=== PATIENT | male | born 1945 | race Caucasian/White ===

== ENCOUNTER 2020-03-23 21:51 | Inpatient (IN) ==
[2020-03-23] MEDS ORDERED: NITROGLYCERIN 2% OINTMENT 30GM TUBE EXT STA (22:03)
[2020-03-23] MEDS ORDERED: ASPIRIN CHEW 324 MG PO STA (22:03)
--- NOTE | 2020-03-23 22:09 | Emergency Department Note ---
Impression & Plan Acute MS, Precordial chest pain, Elevated troponin, SOB (shortness of breath) ED Provider Note NAME: NETTE DE LA O AGE: 74 SEX: M : 1945 ARRIVES VIA: Walk-In INFORMANT: [Patient][family] ED PROVIDER(S): [Sam Mendez MD] CHIEF COMPLAINT: Chest pain HISTORY OF PRESENT ILLNESS: The patient is a 74-year-old male presents to the ED with complaints of chest pr essure/tightness. The patient states that his symptoms started about 8 hours ago when he was walking behind a lawnmower. He began to feel short of breath and developed chest tightness. He had no nausea, no sweating. The pain did not radiate. The pain was a 6/10. The patient rested but he still is having discomfort at a 4/10. He spoke to his family member who is a nurse practitioner and he was told to report to the ED. The patient has no known coronary disease. He had a stress test many many years ago and did well on it. He has not had cough or cold or congestion. He has no known coronavirus exposures. REVIEW OF SYSTEMS: See HPI for pertinent positives and negatives. A total of ten systems were reviewed and were otherwise negative. PMHx/PSHx: See Below SOCIAL HISTORY: See Below. PHYSICAL EXAM: GENERAL: Patient is in no acute distress. HEENT: No acute trauma, normocephalic atraumatic, mucous membranes moist, no nasal congestion, no scleral icterus. NECK: No stridor, no adenopathy, no meningismus, trachea is midline. LUNGS: Clear to auscultation bilaterally, no wheeze, no rhonchi, breath sounds equal. Chest: Nontender chest wall. HEART: Subtle systolic murmur, there appears to be a regular rhythm with an occasional extra beat. Normal rate. ABDOMEN: Soft, nontender, bowel sounds positive, no hernias, no peritonitis. EXTREMITIES: No cyanosis or edema, full range of motion of all the joints without pain or difficulty, no signs for acute trauma. NEUROLOGIC: Oriented x 3, no acute motor or sensory deficits, no focal weakness. SKIN: No rash, no jaundice, no diaphoresis. DIFFERENTIAL DIAGNOSIS: Cardiac ischemia, aortic dissection, pulmonary embolism, pneumothorax, pneumonia, pericarditis, myocarditis, esophageal rupture, GERD, cholecystitis, pancreatitis, musculoskeletal, as well as other pathologies. EMERGENCY DEPARTMENT COURSE/PROCEDURES: ECG: Indication was chest pain. The ECG shows a sinus rhythm with some frequent PVCs. The rate is 93. There is some ST depression in the lateral leads. No ST elevation. The QTc is 455. Compared to an ECG from 22 September 2006, the PVCs are new, the ST depressions are new. Repeat ECG : Performed after the nitroglycerin paste shows a sinus rhythm with some PVCs. The rate was 83. The QTc was 465. The lateral ST depressions had nearly resolved. Continuous Cardiac Monitoring: An order was placed for continuous cardiac monitoring. The monitor shows a rate of 90 with sinus rhythm with PVCs. Critical Care Note: I have personally spent greater than 41 minutes of critical care time in the direct management of this patient. This includes bedside care, interpretation of diagnostic studies, and testing, discussion with consultants, patient, and family members, and other required patient management activities. This 41 minutes is in excess of all separately billable procedures. MEDICAL DECISION MAKING: There is no leukocytosis or concerning anemia. There is a normal platelet count. No coagulopathy. No significant electrolyte abnormality or kidney failure. AST mildly elevated, the bilirubin was normal. No evidence for panc reatitis. Chest film did not show mediastinal widening, pneumonia or pneumothorax. ECG showed a sinus rhythm with PVCs. There was some ST depression laterally. No ST elevation. Cardiac troponin testing returned elevated at 22, this elevation is consistent with MS. A second EKG was done during the patient's stay, the second EKG did show improvement in the ST depression. The patient was aggressively managed given his presentation. He was given nitroglycerin paste, he received IV saline 500 cc. He was given oral aspirin. He was given a dose of IV Lopressor, 5 mg. After the above medication regimen, the patient has had improvement in his symptoms. He is much more comfortable. The patient is in need of a hospital stay. I spoke to the case folder. Hospitalization is warranted. The on-call hospitalist has been consulted. In short, I suspect that the patient had an MS earlier today. He does not meet criteria for a heart alert. He is feeling markedly better with medical manag ement. His ECG is improving. Past Med/Surg History Medical History Diabetes mellitus Hypertension Social History Smoking Status: Former smoker Feels Safe at Home: Yes Allergies Allergies Allergy/AdvReac Type Severity Reaction Status Date / Time No Known Allergies Allergy Mild Verified 03/23/20 22:58 Home Meds Home Medications Medication Instructions Recorded Confirmed aspirin 81 mg PO DAILY 03/23/20 03/23/20 ergocalciferol (vitamin D2) 50,000 unit PO WK 03/23/20 03/23/20 lisinopril 20 mg PO DAILY 03/23/20 03/23/20 metformin 500 mg PO BID 03/23/20 03/23/20 omeprazole 20 mg PO DAILY 03/23/20 03/23/20 simvastatin 20 mg PO HS 03/23/20 03/23/20 Results & Data (ED) Vital Signs Vital Signs - 24 hr 03/23/20 21:51 03/23/20 22:16 03/23/20 22:18 Temperature 36.8 C Temperature Source Oral Pulse Rate 94 H Pulse Rate from SpO2 Sensor Respiratory Rate 20 Respiratory Effort / Characteristics Non-Labored Spontaneous Respiratory Depth Normal Blood Pressure 160/89 H Blood Pressure Mean 112 Pulse Oximetry 95 95 95 Oxygen Delivery Method Room Air Room Air Room Air Sepsis Recent Fever Within 48 Hours No Sepsis New/Unexplained Change in Mental Status No Sepsis Action Taken by Nursing No Action Required 03/23/20 22:30 03/23/20 22:38 03/23/20 23:02 Temperature Temperature Source Pulse Rate 81 90 Pulse Rate from SpO2 Sensor 82 Respiratory Rate 19 Respiratory Effort / Characteristics Non-Labored Respiratory Depth Blood Pressure 127/73 155/82 H Blood Pressure Mean 99 Pulse Oximetry 97 Oxygen Delivery Method Sepsis Recent Fever Within 48 Hours Sepsis New/Unexplained Change in Mental Status Sepsis Action Taken by Half-Way Medications Current Medication List: was personally reviewed by me Laboratory Data Attestation: I reviewed the patient's lab results. Result diagrams: 03/23/20 22:09 03/23/20 22:09 Lab Results 03/23/20 03/23/20 03/23/20 Range/Units 22:09 22:09 22:09 WBC 9.49 (4.8-10.8) K/uL RBC 4.24 L (4.7-6.1) M/uL Hgb 13.8 L (14.0-18.0) g/dL Hct 40.4 L (42-52) % MCV 95.3 (80-100) fL MCH 32.5 (25-34) pg MCHC 34.2 (32-36) g/dL RDW Std Deviation 46.9 H (36.4-46.3) fL RDW Coeff of [place] 13.6 (11.5-14.5) % Plt Count 234 (130-400) K/uL MPV 10.6 H (7.4-10.4) fL Immature Gran % (Auto) 0.2 % Neut % (Auto) 75.8 % Lymph % (Auto) 15.0 % [place] % (Auto) 8.5 % Eos % (Auto) 0.3 % Baso % (Auto) 0.2 % Neut # (Auto) 7.19 H (1.4-6.5) K/uL Lymph # (Auto) 1.42 (1.2-3.4) K/uL [place] # (Auto) 0.81 H (0.11-0.59) K/uL Eos # (Auto) 0.03 (0-0.5) K/uL Baso # (Auto) 0.02 (0-0.2) K/uL Immature Gran # (Auto) 0.02 (0.00-0.02) K/uL PT 11.4 (9.0-12.0) Seconds INR 1.1 (0.9-1.1) APTT 26.5 (21.0-31.0) Seconds PTT Ratio 0.9 Sodium 140 (136-145) mmol/L Potassium 3.8 (3.5-5.1) mmol/L Chloride 107 (98-107) mmol/L Carbon Dioxide 24 (21-32) mmol/L Anion Gap 9.0 (3-11) BUN 22 H (7-18) mg/dl Creatinine 0.99 (0.6-1.4) mg/dl Est Cr Clr Drug Dosing 81.9 ml/min Est GFR ( Amer) 87.8 Est GFR (Non-Af Amer) 75.8 BUN/Creatinine Ratio 21.9 H (10-20) Glucose 165 H (70-99) mg/dl Calcium 9.5 (8.5-10.1) mg/dl Magnesium 1.8 (1.8-2.4) mg/dl Total Bilirubin 0.5 (0.2-1) mg/dl AST 97 H (15-37) U/L ALT 52 (12-78) U/L Alkaline Phosphatase 87 (45-117) U/L Troponin I 22.700 H* (0-0.045) ng/ml Total Protein 7.3 (6.4-8.2) gm/dl Albumin 3.9 (3.4-5.0) gm/dl Globulin 3.4 (2.5-4.0) gm/dl Albumin/Globulin Ratio 1.1 (0.9-2) Lipase 79 (73-393) U/L Administered Medications Discontinued Medications Aspirin (Aspirin Chew 324 Mg) 324 mg PO NOW STA Stop: 03/23/20 22:04 Last Admin: 03/23/20 22:19 Dose: 324 mg Documented by: [id number] Sodium Chloride (Nss) 500 mls @ 999 mls/hr IV .Q31M DIANA Stop: 03/23/20 22:45 Last Infusion: 03/23/20 22:50 Dose: 0 mls/hr Documented by: [id number] Admin: 03/23/20 22:19 Dose: 999 mls/hr Documented by: [id number] Metoprolol Tartrate (Metoprolol Tartrate 1 Mg/Ml Vial) 5 mg IV NOW STA Stop: 03/23/20 22:55 Last Admin: 03/23/20 23:02 Dose: 5 mg Documented by: [id number] Nitroglycerin (Nitroglycerin 2% Ointment 30gm Tube) 2 inch EXT NOW STA Stop: 03/23/20 22:04 Last Admin: 03/23/20 22:19 Dose: 2 inch Documented by: [id number] Imaging Data Attestation: I personally reviewed and interpreted this imaging study as follows: My Impression: Chest x-ray: There is no pneumonia, pneumothorax or mediastinal widening. The lungs appear clear. There is no free air. Blood Pressure Blood Pressure Findings: Elevated blood pressure Blood Pressure Disposition: Referred to patients primary care provider Discharge Plan Visit Data Chief Complaint: Shortness of Breath/Dyspnea Stated Complaint: SOB,CHEST PAIN ED Provider: Sam Mendez Discharge Problem: Acute MS, Precordial chest pain, Elevated troponin, SOB (shortness of breath) Patient Disposition: Admitted As Inpatient Condition: Good Forms Stand Alone Forms: My [facility] [place] [employer] Prescriptions Prescriptions: No Action metformin 500 mg tablet 500 mg PO BID RF: 0 lisinopril 20 mg tablet 20 mg PO DAILY RF: 0 simvastatin 20 mg tablet 20 mg PO HS RF: 0 omeprazole 20 mg capsule,delayed release(DR/EC) 20 mg PO DAILY RF: 0 aspirin 81 mg tablet,chewable 81 mg PO DAILY RF: 0 ergocalciferol (vitamin D2) 1,250 mcg (50,000 unit) capsule 50,000 unit PO WK RF: 0 Referrals Referrals: Vladimir Acosta MD [Primary Care Provider] - Discharge Problem: Acute MS Qualifiers: Myocardial infarction type: non-ST elevation myocardial infarction Qualified Code(s): I21.4 - Non-ST elevation (NSTEMI) myocardial infarction
[2020-03-23] MEDS ORDERED: SODIUM CHLORIDE 0.9% 500 ML IV SCH (22:15)
[2020-03-23 22:20] LABS: Basophils # (auto) 0.02 K/uL (0-0.2); Basophils % (auto) 0.2 %; Eosinophils # (auto) 0.03 K/uL (0-0.5); Eosinophils % (auto) 0.3 %; Hematocrit (blood only) 40.4 % (42-52); Hemoglobin 13.8 g/dL (14.0-18.0); Immature Granulocytes # (auto) 0.02 K/uL (0.00-0.02); Immature Granulocytes % (auto) 0.2 %; Lymphocytes # (auto) 1.42 K/uL (1.2-3.4); Mean Corpuscular Hemoglobin 32.5 pg (25-34); Mean Corpuscular Hgb Conc 34.2 g/dL (32-36); Mean Corpuscular Volume 95.3 fL (80-100); Mean Platelet Volume 10.6 fL (7.4-10.4); Monocytes # (auto) 0.81 K/uL (0.11-0.59); Monocytes % (auto) 8.5 %; Neutrophils # (auto) 7.19 K/uL (1.4-6.5); Neutrophils % (auto) 75.8 %; Platelet Count 234 K/uL (130-400); RDW Coefficient of Variation 13.6 % (11.5-14.5); RDW Standard Deviation 46.9 fL (36.4-46.3); Red Blood Count 4.24 M/uL (4.7-6.1); White Blood Count 9.49 K/uL (4.8-10.8)
[2020-03-23 22:30] LABS: INR 1.1 (0.9-1.1); Partial Thromboplastin Ratio 0.9; Partial Thromboplastin Time 26.5 Seconds (21.0-31.0); Prothrombin Time 11.4 Seconds (9.0-12.0)
[2020-03-23 22:37] LABS: Albumin Level 3.9 gm/dl (3.4-5.0); BUN Creatinine Ratio 21.9 (10-20); Calcium 9.5 mg/dl (8.5-10.1); Creatinine Clr Calc Pharmacy 81.9 ml/min; Est GFR (African American) 87.8; Est GFR (Non-African American) 75.8; Magnesium 1.8 mg/dl (1.8-2.4); Potassium 3.8 mmol/L (3.5-5.1)
[2020-03-23 22:52] LABS: Albumin Globulin Ratio 1.1 (0.9-2); Bilirubin,Total 0.5 mg/dl (0.2-1); Globulin 3.4 gm/dl (2.5-4.0); Total Protein 7.3 gm/dl (6.4-8.2); Troponin I 22.7 ng/ml (0-0.045)
[2020-03-23] MEDS ORDERED: METOPROLOL TARTRATE 1 MG/ML VIAL IV STA (22:54)
[2020-03-23] MEDS ORDERED: POTASSIUM CHLORIDE 20 MEQ TABCR PO STA (23:11)
[2020-03-23] MEDS ORDERED: MAGNESIUM SULFATE / D5W 1 GM/100 ML BAG IV STA (23:12)
[2020-03-23] MEDS ORDERED: Heparin IV Standard *NO* Bolus STA (23:40)
--- NOTE | 2020-03-23 23:43 | History & Physical Report ---
Date of Service March 23, 2020 Assessment & Plan (1) NSTEMI (non-ST elevated myocardial infarction): hypertension, slight elevated hyperlipidemia, on statin Rx DM 2 on oral meds, well-controlled as of recent outpatient hemoglobin A1c 5.07 March 2020 prostate cancer status post surgery ANTONI status post surgery on BIPAP chronic anemia, hemoglobin at baseline past tobacco abuse PCU Continue aspirin and statin Rx Initiate beta-rolanda therapy Continue home EVE inhibitor IV heparin Trend troponin TTE, Cardiology consult RE ACS (ER provider awaiting callback from Dr. Farrar.) Update lipid profile Basal insulin, ISS BG goal [id number], carb count coverage DVT prophylaxis. IV heparin Full code Patient's requesting updates for providers. Ms. Bridgett Chairez, contact #[phone]. Text document was generated using [employer] voice recognition software. It may contain grammatical or spelling errors. Kindly contact undersigned for clarification of any documentation item in question. History of Present Illness Chief Complaint: Chest tightness, shortness of breath Primary Care Provider: Vladimir Acosta MD History obtained from patient, family, and records. Medical history significant for hypertension, hyperlipidemia, DM 2 on oral meds, prostate cancer status post surgery, ANTONI status post surgery on BIPAP, chronic anemia (baseline hemoglobin of 13 ), past tobacco abuse. Last confinement 2009 for E. coli UTI. Patient was mowing his lawn this afternoon when he experienced chest pressure/tightness associated with shortness of breath. No cough symptoms. No radiation. No prior episodes in the past. Yardwork a little more strenuous than usual since longterm as per . At the ER, chest discomfort improved with Nitropaste administration. MEDICAL HISTORY: As above. SURGERIES: UP3, skin cancer surgery, prostatectomy, carpal tunnel surgery, FAMILY HISTORY: gastric cancer, DM. ANTONI PERSONAL AND SOCIAL HISTORY: Past tobacco use. No chronic intake of alcoholic beverages. 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 Allergies Allergy/AdvReac Type Severity Reaction Status Date / Time No Known Allergies Allergy Mild Verified 03/23/20 22:58 Home Medications Home Medications Medication Instructions Recorded Confirmed Type aspirin 81 mg PO DAILY 03/23/20 03/23/20 History ergocalciferol (vitamin D2) 50,000 unit PO WK 03/23/20 03/23/20 History lisinopril 20 mg PO DAILY 03/23/20 03/23/20 History metformin 500 mg PO BID 03/23/20 03/23/20 History omeprazole 20 mg PO DAILY 03/23/20 03/23/20 History simvastatin 20 mg PO HS 03/23/20 03/23/20 History Past Med/Surg History Medical History Diabetes mellitus Hypertension Social History Smoking Status: Former smoker Smoking End Date: 1965; Second Hand Exposure: No; Do You Dip or Chew Tobacco: No; Tobacco Cessation Education Requested by Patient: No Hx Alcohol Use: Yes Alcohol type: wine Hx Substance Use: No Preferred Language: [place] Communication Ability: Effective 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 Beliefs That Will Affect Care: None Current Living Situation: Spouse Other Information That Helps Us Care for You: No Feels Safe at Home: Yes Safety Concerns: Feels Safe At This Time Assistive Devices: CPAP, Glasses and Hearing Aid - Bilateral Review of Systems Review of Systems: As per HPI, all 10 systems reviewed, all other ROS negative Physical Exam Physical Exam: GENERAL: Comfortable, pleasant, obese, slightly anxious, no respiratory distress SKIN: Normal color, warm HEENT: Bespectacled, [place] palpebral conjunctivae, no ptosis, dry buccal mucosa NECK : Supple, short neck, no tenderness CHEST : CTA, no tenderness HEART : Diminished S1-S2 , no obvious murmurs ABDOMEN: Some distention, nontender EXTREMITIES : No LE swelling/tenderness, no other conspicuous deformities noted NEUROLOGIC : Coherent, no facial asymmetry, no other gross focality Results & Data Results & Data ([facility]) Vital Signs (Past 12 Hours) Vital Signs Temp Pulse Resp BP Pulse Ox 03/23/20 23:02 90 155/82 H 03/23/20 22:30 81 19 127/73 97 03/23/20 22:18 95 03/23/20 22:16 95 03/23/20 21:51 36.8 C 94 H 20 160/89 H 95 Laboratory Results Laboratory Results WBC 9.49 K/uL (4.8-10.8) 03/23/20 22:09 RBC 4.24 M/uL (4.7-6.1) L 03/23/20 22:09 Hgb 13.8 g/dL (14.0-18.0) L 03/23/20 22:09 Hct 40.4 % (42-52) L 03/23/20 22:09 MCV 95.3 fL (80-100) 03/23/20 22:09 MCH 32.5 pg (25-34) 03/23/20 22:09 MCHC 34.2 g/dL (32-36) 03/23/20 22:09 RDW Std Deviation 46.9 fL (36.4-46.3) H 03/23/20 22:09 RDW Coeff of [place] 13.6 % (11.5-14.5) 03/23/20 22:09 Plt Count 234 K/uL (130-400) 03/23/20 22:09 MPV 10.6 fL (7.4-10.4) H 03/23/20 22:09 Immature Gran % (Auto) 0.2 % 03/23/20 22:09 Neut % (Auto) 75.8 % 03/23/20 22:09 Lymph % (Auto) 15.0 % 03/23/20 22:09 [place] % (Auto) 8.5 % 03/23/20 22:09 Eos % (Auto) 0.3 % 03/23/20 22:09 Baso % (Auto) 0.2 % 03/23/20 22:09 Neut # (Auto) 7.19 K/uL (1.4-6.5) H 03/23/20 22:09 Lymph # (Auto) 1.42 K/uL (1.2-3.4) 03/23/20 22:09 [place] # (Auto) 0.81 K/uL (0.11-0.59) H 03/23/20 22:09 Eos # (Auto) 0.03 K/uL (0-0.5) 03/23/20 22:09 Baso # (Auto) 0.02 K/uL (0-0.2) 03/23/20 22:09 Immature Gran # (Auto) 0.02 K/uL (0.00-0.02) 03/23/20 22:09 PT 11.4 Seconds (9.0-12.0) 03/23/20 22:09 INR 1.1 (0.9-1.1) 03/23/20 22:09 APTT 26.5 Seconds (21.0-31.0) 03/23/20 22:09 PTT Ratio 0.9 03/23/20 22:09 Sodium 140 mmol/L (136-145) 03/23/20 22:09 Potassium 3.8 mmol/L (3.5-5.1) 03/23/20 22:09 Chloride 107 mmol/L (98-107) 03/23/20 22:09 Carbon Dioxide 24 mmol/L (21-32) 03/23/20 22:09 Anion Gap 9.0 (3-11) 03/23/20 22:09 BUN 22 mg/dl (7-18) H 03/23/20 22:09 Creatinine 0.99 mg/dl (0.6-1.4) 03/23/20 22:09 Est Cr Clr Drug Dosing 81.9 ml/min 03/23/20 22:09 Est GFR ( Amer) 87.8 03/23/20 22:09 Est GFR (Non-Af Amer) 75.8 03/23/20 22:09 BUN/Creatinine Ratio 21.9 (10-20) H 03/23/20 22:09 Glucose 165 mg/dl (70-99) H 03/23/20 22:09 Calcium 9.5 mg/dl (8.5-10.1) 03/23/20 22:09 Magnesium 1.8 mg/dl (1.8-2.4) 03/23/20 22:09 Total Bilirubin 0.5 mg/dl (0.2-1) 03/23/20 22:09 AST 97 U/L (15-37) H 03/23/20 22:09 ALT 52 U/L (12-78) 03/23/20 22:09 Alkaline Phosphatase 87 U/L (45-117) 03/23/20 22:09 Troponin I 22.700 ng/ml (0-0.045) H* 03/23/20 22:09 Total Protein 7.3 gm/dl (6.4-8.2) 03/23/20 22:09 Albumin 3.9 gm/dl (3.4-5.0) 03/23/20 22:09 Globulin 3.4 gm/dl (2.5-4.0) 03/23/20 22:09 Albumin/Globulin Ratio 1.1 (0.9-2) 03/23/20 22:09 Lipase 79 U/L (73-393) 03/23/20 22:09 Diagnostic Findings Chest x-ray interpretation cardiomegaly, prominent aortic knob, atelectasis EKG as per my interpretation : Rate 95, NSR, normal axis, ST depression anterolateral leads, PVCs
[2020-03-23] MEDS ORDERED: HEPARIN SODIUM/DEXTROSE 25,000 UNITS/500 ML BAG IV SCH (23:45)
[2020-03-24] MEDS ORDERED: HEPARIN 25000 UNIT/500 ML D5W IV ONE (00:21)
[2020-03-24] MEDS ORDERED: DEXTROSE 50% 50 ML SYRINGE IV PRN (00:43)
[2020-03-24] MEDS ORDERED: MoRPHine SULFATE 2 MG/ML CARP IV PRN (00:43)
[2020-03-24] MEDS ORDERED: TRAMADOL HCL 50 MG TABLET PO PRN (00:43)
[2020-03-24] MEDS ORDERED: GLUCOSE 40% GEL 15 GM TUBE PO PRN (00:43)
[2020-03-24] MEDS ORDERED: ACETAMINOPHEN 325 MG TAB PO PRN (00:43)
[2020-03-24] MEDS ORDERED: NITROGLYCERIN SL 0.4 MG/TAB TAB SL PRN (00:43)
[2020-03-24] MEDS ORDERED: GLUCAGON FOR INJ 1 MG VIAL SQ PRN (00:43)
[2020-03-24] MEDS ORDERED: PROMETHAZINE HCL 12.5 MG in SODIUM CHLORIDE 0.9% 50 ML IV PRN (00:43)
[2020-03-24] MEDS ORDERED: GLUCOSE 10 TABS/TUBE PO PRN (00:43)
[2020-03-24] MEDS ORDERED: LORazepam 0.25 MG/0.5 ML VIAL IV PRN (00:43)
[2020-03-24] MEDS ORDERED: CARBOHYDRATES FOR HYPOGLYCEMIA PO PRN (00:43)
[2020-03-24] MEDS ORDERED: LACTATED RINGER'S 1,000 ML IV ONE (00:43)
[2020-03-24] MEDS: INSULIN ASPART 100 UNITS/ML 3 ML PEN SC SCH ×3 (01:11→12:21)
[2020-03-24 06:58] LABS: Basophils # (auto) 0.04 K/uL (0-0.2); Basophils % (auto) 0.5 %; Eosinophils # (auto) 0.08 K/uL (0-0.5); Eosinophils % (auto) 1.1 %; Hematocrit (blood only) 36.7 % (42-52); Hemoglobin 12.8 g/dL (14.0-18.0); Immature Granulocytes # (auto) 0.01 K/uL (0.00-0.02); Immature Granulocytes % (auto) 0.1 %; Lymphocytes # (auto) 1.57 K/uL (1.2-3.4); Lymphocytes % (auto) 20.7 %; Mean Corpuscular Hemoglobin 33.5 pg (25-34); Mean Corpuscular Hgb Conc 34.9 g/dL (32-36); Mean Corpuscular Volume 96.1 fL (80-100); Monocytes # (auto) 0.69 K/uL (0.11-0.59); Monocytes % (auto) 9.1 %; Neutrophils # (auto) 5.18 K/uL (1.4-6.5); Neutrophils % (auto) 68.5 %; Platelet Count 215 K/uL (130-400); RDW Coefficient of Variation 13.7 % (11.5-14.5); RDW Standard Deviation 47.8 fL (36.4-46.3); Red Blood Count 3.82 M/uL (4.7-6.1); White Blood Count 7.57 K/uL (4.8-10.8)
[2020-03-24 07:17] LABS: Partial Thromboplastin Ratio 2.1
[2020-03-24 07:18] LABS: Partial Thromboplastin Time 59.5 Seconds (21.0-31.0)
[2020-03-24 07:31] LABS: BUN Creatinine Ratio 21.7 (10-20); Calcium 9.3 mg/dl (8.5-10.1); Creatinine Clr Calc Pharmacy 113.7 ml/min; Est GFR (African American) 109.3; Est GFR (Non-African American) 94.3
[2020-03-24 07:59] LABS: Troponin I 76.9 ng/ml (0-0.045)
--- NOTE | 2020-03-24 08:33 | XRay Report ---
XR chest 1V portable CLINICAL HISTORY: Chest pain. COMPARISON STUDY: Chest radiograph August 04, 2014. FINDINGS: Lung volumes are normal. Lungs are clear. There is no pneumothorax or pleural effusion. Car diac size is normal. Mediastinal contours are normal. There is no evidence for pulmonary edema. IMPRESSION: No acute cardiopulmonary findings. ACT 112: Negative or not required by law. Electronically signed by: Ruperto Franks M.D. 03/24/2020 8:32 AM
[2020-03-24] MEDS ORDERED: lisinopriL 20 MG TAB PO SCH (09:00)
[2020-03-24] MEDS ORDERED: METOPROLOL SUCC 25MG EXT REL TAB PO SCH (09:00)
[2020-03-24] MEDS ORDERED: PANTOprazole 40 MG TAB PO SCH (09:00)
[2020-03-24] MEDS ORDERED: ASPIRIN 81 MG ECTAB PO SCH (09:00)
[2020-03-24] MEDS ORDERED: INSULIN GLARGINE SOLOSTAR 100 UNITS/ML 3 ML PEN SC SCH (09:00)
--- NOTE | 2020-03-24 09:57 | Cardiology Consultation ---
Date of Consultation March 24, 2020 Assessment & Plan (1) NSTEMI (non-ST elevated myocardial infarction): Patient now with 2 out of 10 chest discomfort. States that similar to his presenting symptoms but not as severe. Given the fact he is now symptomatic along with his EKG changes, significant troponin elevation and findings of inferior wall hypokinesis I believe the most prudent course of action is to proceed directly to the cardiac Sales Team Manager. I discussed these findings and recommendations with the patient and his daughter by phone. I also discussed the risks and benefits of the procedure, they both state that they understand, they are accepting of the risks and wished to proc eed. Further recommendations to follow cardiac cath. He will be continued on his IV heparin and sublingual nitroglycerin will be given now. (2) Diabetes mellitus: (3) Hypertension: History of Present Illness Reason for Consultation: Non-ST segment elevation myocardial infarction. Requesting Physician: Dr. Gr. Attending Physician: Francisco Larry MD History of Present Illness Mr. Chairez is a very pleasant 74-year-old gentleman who presented to [facility] on 03/24/2020 with complaints of shortness of breath and chest discomfort. He states that on the date of presentation he was cutting his grass when he became significantly short of breath and developed chest discomfort. He described the chest discomfort as a pressure sensation across his left precordium. He stopped to rest and shortness of breath improved however, his chest pain persisted. He denied any radiation of the discomfort, diaphoresis, nausea, palpitations, lightheadedness, dizziness or syncope. He denies any previous similar episodes, however, he does note that he became short of breath while cutting grass approximately 2 weeks ago but that episode did not result in a chest discomfort. Upon presentation emergency room, his initial EKG was unremarkable, however, troponin level was elevated and he was started on IV heparin. This chest discomfort resolved with Nitropaste and he was comfortable overnight. I saw the patient on the morning of the at that time he was relating that he was having some slight chest discomfort again ranking it 2 out of 10 on a pain scale. He states his pain upon presentation was 5 out of 10 on a pain scale. Troponin levels continue to elevate overnight to a peak of 77 and serial EKGs showed evolving ST segment depressions in the lateral leads. Stat echocardiogram was performed which revealed inferior/inferior wall hypokinesis. Allergies Allergy/AdvReac Type Severity Reaction Status Date / Time No Known Allergies Allergy Mild Verified 03/23/20 22:58 Home Medications Home Medications Medication Instructions Recorded Confirmed Type aspirin 81 mg PO DAILY 03/23/20 03/23/20 History ergocalciferol (vitamin D2) 50,000 unit PO WK 03/23/20 03/23/20 History lisinopril 20 mg PO DAILY 03/23/20 03/23/20 History metformin 500 mg PO BID 03/23/20 03/23/20 History omeprazole 20 mg PO DAILY 03/23/20 03/23/20 History atorvastatin 80 mg PO QAM #30 tab 03/24/20 Rx Patient History Medical History Diabetes mellitus Hypertension Social History Smoking Status: Former smoker Smoking End Date: 1965; Second Hand Exposure: No; Do You Dip or Chew Tobacco: No; Tobacco Cessation Education Requested by Patient: No Hx Alcohol Use: Yes Alcohol type: wine Hx Substance Use: No Preferred Language: Portuguese Communication Ability: Effective Compliance Paralegal Required: No Beliefs That Will Affect Care: None Current Living Situation: Spouse Other Information That Helps Us Care for You: No Feels Safe at Home: Yes Safety Concerns: Feels Safe At This Time Assistive Devices: CPAP, Glasses and Hearing Aid - Bilateral Review of Systems Review of Systems: All systems reviewed & are unremarkable except as noted in HPI & below Physical Exam Physical Exam: General: Awake, alert and oriented x 3. No acute distress. HEENT: Normocephalic, atraumatic. Pupils equal, round and reactive to light and accommodation. Extraocular muscles are intact. Anicteric sclera. Moist mucous membranes. Neck: No JVD. No bruit. Cardiovascular: Regular. Positive S-4. Normal S-1 and S-2. No S-3. No murmurs or rubs. Pulmonary: Clear to auscultation B/L. No rales, rhonchi or wheezing Abdomen: Bowel sounds x 4, soft. No rebound, guarding or tenderness. No organomegaly. Extremities: No clubbing, cyanosis or edema. +2 pedal pulses bilaterally. Skin: Warm and dry. Results & Data ([place]) Vital Signs (Past 12 Hours) Vital Signs Temp Pulse Pulse Resp BP BP Pulse Ox 03/24/20 08:13 37.1 C 72 18 138/77 94 03/24/20 03:47 36.4 C L 61 18 127/84 94 03/24/20 00:40 36.6 C 60 18 132/72 94 03/24/20 00:15 73 22 122/75 95 03/23/20 23:32 80 23 95 03/23/20 23:31 78 23 126/79 96 03/23/20 23:02 90 155/82 H 03/23/20 22:30 81 19 127/73 97 03/23/20 22:18 95 03/23/20 22:16 95 Laboratory Results Laboratory Results - last 24 hr 03/23/20 03/23/20 03/23/20 22:09 22:09 22:09 WBC 9.49 RBC 4.24 L Hgb 13.8 L Hct 40.4 L MCV 95.3 MCH 32.5 MCHC 34.2 RDW Std Deviation 46.9 H RDW Coeff of Santa 13.6 Plt Count 234 MPV 10.6 H Immature Gran % (Auto) 0.2 Neut % (Auto) 75.8 Lymph % (Auto) 15.0 Wolfe % (Auto) 8.5 Eos % (Auto) 0.3 Baso % (Auto) 0.2 Neut # (Auto) 7.19 H Lymph # (Auto) 1.42 Wolfe # (Auto) 0.81 H Eos # (Auto) 0.03 Baso # (Auto) 0.02 Immature Gran # (Auto) 0.02 PT 11.4 INR 1.1 APTT 26.5 PTT Ratio 0.9 Activ Coag Time Kaolin Sodium 140 Potassium 3.8 Chloride 107 Carbon Dioxide 24 Anion Gap 9.0 BUN 22 H Creatinine 0.99 Est Cr Clr Drug Dosing 81.9 Est GFR ( Amer) 87.8 Est GFR (Non-Af Amer) 75.8 BUN/Creatinine Ratio 21.9 H Glucose 165 H POC Glucose Calcium 9.5 Magnesium 1.8 Total Bilirubin 0.5 AST 97 H ALT 52 Alkaline Phosphatase 87 Troponin I 22.700 H* Total Protein 7.3 Albumin 3.9 Globulin 3.4 Albumin/Globulin Ratio 1.1 Triglycerides Cholesterol LDL Cholesterol, Calc VLDL Cholesterol, Calc HDL Cholesterol Cholesterol/HDL Ratio Lipase 79 03/24/20 03/24/20 03/24/20 00:48 06:30 06:30 WBC 7.57 RBC 3.82 L Hgb 12.8 L Hct 36.7 L MCV 96.1 MCH 33.5 MCHC 34.9 RDW Std Deviation 47.8 H RDW Coeff of Santa 13.7 Plt Count 215 MPV 11.0 H Immature Gran % (Auto) 0.1 Neut % (Auto) 68.5 Lymph % (Auto) 20.7 Wolfe % (Auto) 9.1 Eos % (Auto) 1.1 Baso % (Auto) 0.5 Neut # (Auto) 5.18 Lymph # (Auto) 1.57 Wolfe # (Auto) 0.69 H Eos # (Auto) 0.08 Baso # (Auto) 0.04 Immature Gran # (Auto) 0.01 PT INR APTT PTT Ratio Activ Coag Time Kaolin Sodium 140 Potassium 4.0 Chloride 109 H Carbon Dioxide 25 Anion Gap 6.0 BUN 15 Creatinine 0.70 Est Cr Clr Drug Dosing 113.7 Est GFR ( Amer) 109.3 Est GFR (Non-Af Amer) 94.3 BUN/Creatinine Ratio 21.7 H Glucose 116 H POC Glucose 125 H Calcium 9.3 Magnesium Total Bilirubin AST ALT Alkaline Phosphatase Troponin I 76.900 H* Total Protein Albumin Globulin Albumin/Globulin Ratio Triglycerides 42 Cholesterol 122 LDL Cholesterol, Calc 59 VLDL Cholesterol, Calc 8 HDL Cholesterol 55 Cholesterol/HDL Ratio 2 Lipase 03/24/20 03/24/20 03/24/20 06:30 07:48 10:45 WBC RBC Hgb Hct MCV MCH MCHC RDW Std Deviation RDW Coeff of Santa Plt Count MPV Immature Gran % (Auto) Neut % (Auto) Lymph % (Auto) Wolfe % (Auto) Eos % (Auto) Baso % (Auto) Neut # (Auto) Lymph # (Auto) Wolfe # (Auto) Eos # (Auto) Baso # (Auto) Immature Gran # (Auto) PT INR APTT 59.5 H* PTT Ratio 2.1 Activ Coag Time Kaolin 158 H Sodium Potassium Chloride Carbon Dioxide Anion Gap BUN Creatinine Est Cr Clr Drug Dosing Est GFR ( Amer) Est GFR (Non-Af Amer) BUN/Creatinine Ratio Glucose POC Glucose 124 H Calcium Magnesium Total Bilirubin AST ALT Alkaline Phosphatase Troponin I Total Protein Albumin Globulin Albumin/Globulin Ratio Triglycerides Cholesterol LDL Cholesterol, Calc VLDL Cholesterol, Calc HDL Cholesterol Cholesterol/HDL Ratio Lipase 03/24/20 11:49 WBC RBC Hgb Hct MCV MCH MCHC RDW Std Deviation RDW Coeff of [place] Plt Count MPV Immature Gran % (Auto) Neut % (Auto) Lymph % (Auto) Wolfe % (Auto) Eos % (Auto) Baso % (Auto) Neut # (Auto) Lymph # (Auto) Wolfe # (Auto) Eos # (Auto) Baso # (Auto) Immature Gran # (Auto) PT INR APTT PTT Ratio Activ Coag Time Kaolin Sodium Potassium Chloride Carbon Dioxide Anion Gap BUN Creatinine Est Cr Clr Drug Dosing Est GFR ( Amer) Est GFR (Non-Af Amer) BUN/Creatinine Ratio Glucose POC Glucose 116 H Calcium Magnesium Total Bilirubin AST ALT Alkaline Phosphatase Troponin I Total Protein Albumin Globulin Albumin/Globulin Ratio Triglycerides Cholesterol LDL Cholesterol, Calc VLDL Cholesterol, Calc HDL Cholesterol Cholesterol/HDL Ratio Lipase
[2020-03-24] MEDS ORDERED: NiCARDipine HCL INJ 2.5 MG/ML 10 ML AMP ONE (10:17)
[2020-03-24] MEDS ORDERED: fentaNYL citrate 100 MCG/2 ML VIAL ONE (10:17)
[2020-03-24] MEDS ORDERED: HEPARIN (PORCINE) 1000 UNIT/ML 10 ML (CATH LAB USE ONLY) ONE (10:17)
[2020-03-24] MEDS ORDERED: MIDAZOLAM HCL 1 MG/ML 2ML VIAL ONE (10:18)
[2020-03-24] MEDS ORDERED: NITROGLYCERIN/D5W 100MCG/ML 20ML SYR ONE (10:18)
--- NOTE | 2020-03-24 11:07 | Cardiac Catheterization ---
Cardiac Cath Procedure Full Procedure Date March 24, 2020 Pre-Procedure Diagnosis Pre-Procedure Diagnosis: Non STEMI AUC Score AUC Score: 08 Post-Procedure Diagnosis Post-Procedure Diagnosis: Severe CAD (Multi-vessel) Procedure(s) Performed Procedure(s) Performed: Coronary Angiography Research Pharmacist Shiraz Guerrero MD Estimated Blood Loss Estimated Blood Loss: None (<5 ml) Medication(s) Medication(s): Fentanyl, Heparin, Lidocaine 1%, Nicardipine, Nitroglycerin and Versed Summary of Findings LMT: large. Diffuse mild LAD: large and transapical. Proximal diffuse up to 40-50% before D1.Mid 95%. Distal vessel with diffuse mild disease and early long eccentric 95-99%. D1 and D2 medium mild. LCx: large and codominant. Ostial 99% hazy lesion. Travels in AV groove and provides multiple small to medium OMs which have mild disease. Terminates distally as a large PLB and large PDA. CELY III. RCA: large caliber and codominant. Diffuse mild disease with up to 30% mid stenosis. Bifurcates distally into large PDA and large branching PLB. PLB has ostial 50-70% stenosis. Mild scattered disease in PDA. Hemodynamics Rest Ao:: 110/64 mm Hg, mean 89 m Hg Final Ao: 113/65 mm Hg, mean 84 mm Hg LV: N/A Recommendations Recommendations: CABG (If patient decides he doesn't want surgery or if surgery excessive risk then PCI of LAD feasible and high risk PCI of ostial LCx should be considered at tertiary center.) and Management Recommendatons (CABG or complex high risk PCI at tertiary center (Impella support?). GDMT including ASA, statin, BB, and ACEi/ARB given DM) Specimens Specimens: None Radiation Exposure (mGy) 830 Contrast (mls) 45 Procedural Complication(s) None Disposition ICU I attest to the content of the Intraoperative Record and any orders documented therein. Any exceptions are noted below. ACC Data: Business Applications Specialist Cardiac Status Clinical evaluation leading to the procedure CAD Presenation: Non STEMI Anginal Classification: CCS IV Heart Failure: No Cardiogenic Shock within 24 Hours: No Cardiac Arrest within 24 Hours: No Imaging Studies Past 6 Months: Yes Stress Studies Past 6 Months: No Standard Exercise Test: No Stress Echocardiogram: No Stress Testing w/SPECT MPI: No Cardiac CTA: No STEMI OR Non-STEMI Symptom Onset Date: 03/23/20 Thrombolytics: No Coronary Anatomy Dominant: Co-Dominant Left Main (% Stenosis): Normal (mild luminal irregularities) LAD (% Stenosis): Proximal (mild <50%), Mid (95%) and Distal (99%) D1 (% Stenosis): Normal D2 (% Stenosis): Normal Circumflex (% Stenosis): Ostial (99% ) RCA (% Stenosis): Mid (mid 30-40) R PL1 (% Stenosis): Ostial (50-70) Diagnostic Physicians Name: Shiraz Guerrero MD Status: Urgent Closure Device Percutaneous Entry Location: Radial Closure Device: Radial Band Recommendations: CABG (If patient decides he doesn't want surgery or if surgery excessive risk then PCI of LAD feasible and high risk PCI of ostial LCx should be considered at tertiary center.) and Management Recommendatons (CABG or complex high risk PCI at tertiary center (Impella support?). GDMT including ASA, statin, BB, and ACEi/ARB given DM) Intraprocedure Events Significant Disection: No Perforation: No
[2020-03-24] MEDS ORDERED: NITROGLYCERIN 2% OINTMENT 30GM TUBE EXT SCH (12:00)
--- NOTE | 2020-03-24 12:30 | Hospitalist Progress Note ---
Date of Service March 24, 2020 Assessment & Plan (1) NSTEMI (non-ST elevated myocardial infarction): Present on admission with non radiating pressure like chest pain Troponin on admission 22, that increased to 76 EKG done this morning showed acute changes compare to the EKG on admission IV heparin starting in the ER Case discussed with cardiology and bedside echo done Echo showed mildly reduced LV systolic function with moderate hypokinesis of the inferior/inferior lateral wall. Ejection fraction 45 to 50% heart alert was called for emergent cardiac cath S/P cardiac cath performed by Dr Guerrero showed: LAD: large and transapical. Proximal diffuse up to 40-50% before D1.Mid 95%. Distal vessel with diffuse mild disease and early long eccentric 95-99%. D1 and D2 medium mild. LCx: large and codominant. Ostial 99% hazy lesion. Travels in AV groove and provides multiple small to medium OMs which have mild disease. Terminates distally as a large PLB and large PDA. CELY III. RCA: large caliber and codominant. Diffuse mild disease with up to 30% mid stenosis. Bifurcates distally into large PDA and large branching PLB. PLB has ostial 50-70% stenos Recommended CABG at a tertiary facility cardiology Dr. Farrar discussed case with cardiology in [place] Dr. Sarah who accepted the patient Simvastatin changed to atorvastatin 80mg daily Continue IV heparin drip, aspirin and metoprolol Nitro topical added Pt will be transferred to [facility] continue hall monitor Dyslipidemia Cholesterol 122, HDL 55, LDL 59 Simvastatin discontinued and started on Lipitor 80mg DM type 2 Most recent Hba1c 5.9 on Sempteber 2019 Continue to hold metformin due to contrast On lantus and novolod sliding scale while HTN BP stable Continue Lisinopril DVT prophylaxis on IV heparin drip Code Status Full code Disposition Transfer to [facility] for CABG Accepting physician Dr. Sarah Patient's requesting updates for providers. Bridgett Palmaclair, contact #[phone]. Admission and Anticipated Discharge Date Admission Date: March 23, 2020 Subjective Pt was seen and examined Lying in bed with mild chest discomfort Pt said that he feels a pressure in his chest He said that the pain is grade like a 2 out 10, compare to when he came that was a 4 or 5 out 10 Currently denies any SOB, fever and palpitation Physical Exam Physical Exam: General- No acute distress Head- atraumatic Eyes- PERRL, EOMI, ENT- oropharynx clear Neck- supple, no JVD Lungs- clear to auscultation Heart- regular rhythm; no murmur Abdomen- normal bowel sounds, soft, nontender Extremities- no calf tenderness, no hematoma in right wrist Neuro- alert, oriented x 3; PERRL, EOMI; no facial palsy; no dysarthria Skin- warm & dry Results & Data Results & Data ([facility]) Vital Signs (Past 12 Hours) Vital Signs Temp Pulse Pulse Resp BP Pulse Ox 03/24/20 11:45 57 L 17 121/73 97 03/24/20 11:30 70 18 133/76 93 03/24/20 11:15 37.1 C 69 17 111/66 93 03/24/20 08:13 37.1 C 72 18 138/77 94 03/24/20 03:47 36.4 C L 61 18 127/84 94 03/24/20 00:40 36.6 C 60 18 132/72 94
[2020-03-24] MEDS ORDERED: ATORVASTATIN 40 MG TAB PO SCH (13:30)
[2020-03-24] MEDS ORDERED: SIMVASTATIN 20 MG TAB PO SCH (21:00)
--- NOTE | 2020-03-25 08:27 | Electrocardiogram Report ---
Test Reason : Blood Pressure : / mmHG Vent. Rate : 083 BPM Atrial Rate : 083 BPM P-R Int : 186 ms QRS Dur : 116 ms QT Int : 396 ms P-R-T Axes : 062 003 056 degrees QTc Int : 465 ms Sinus rhythm with frequent Premature ventricular complexes Nonspecific ST abnormality Abnormal ECG When compared with ECG of 23-MAR-2020 21:57, (unconfirmed) No significant change was found Confirmed by Praveen Arevalo ([id number]) on 03/25/2020 8:26:55 AM Referred By: REFERRED SELF Confirmed By:Praveen Arevalo
--- NOTE | 2020-03-25 08:27 | Electrocardiogram Report ---
Test Reason : Blood Pressure : / mmHG Vent. Rate : 093 BPM Atrial Rate : 093 BPM P-R Int : 186 ms QRS Dur : 118 ms QT Int : 366 ms P-R-T Axes : 069 004 076 degrees QTc Int : 455 ms Sinus rhythm with frequent Premature ventricular complexes Possible Left atrial enlargement Non-specific intra-ventricular conduction delay Nonspecific ST abnormality Abnormal ECG When compared with ECG of 22-SEP-2006 06:50, Premature ventricular complexes are now Present Non-specific change in ST segment in Inferior leads ST now depressed in Anterolateral leads Confirmed by Praveen Arevalo ([id number]) on 03/25/2020 8:26:46 AM Referred By: REFERRED SELF Confirmed By:Praveen Arevalo
--- NOTE | 2020-03-25 08:37 | Electrocardiogram Report ---
Test Reason : Blood Pressure : / mmHG Vent. Rate : 071 BPM Atrial Rate : 071 BPM P-R Int : 198 ms QRS Dur : 108 ms QT Int : 402 ms P-R-T Axes : -01 002 054 degrees QTc Int : 436 ms Normal sinus rhythm Nonspecific ST abnormality Abnormal ECG When compared with ECG of 23-MAR-2020 22:42, (unconfirmed) Premature ventricular complexes are no longer Present Confirmed by Praveen Arevalo ([id number]) on 03/25/2020 8:37:20 AM Referred By: REFERRED SELF Confirmed By:Praveen Arevalo
--- NOTE | 2020-03-25 08:40 | Electrocardiogram Report ---
Test Reason : Blood Pressure : / mmHG Vent. Rate : 084 BPM Atrial Rate : 084 BPM P-R Int : 184 ms QRS Dur : 102 ms QT Int : 388 ms P-R-T Axes : -04 -04 031 degrees QTc Int : 458 ms Sinus rhythm with frequent , and consecutive Premature ventricular complexes Nonspecific ST and T wave abnormality Abnormal ECG When compared with ECG of 24-MAR-2020 07:14, (unconfirmed) Premature ventricular complexes are now Present Confirmed by Praveen Arevalo ([id number]) on 03/25/2020 8:40:31 AM Referred By: REFERRED SELF Confirmed By:Praveen Arevalo
--- NOTE | 2020-03-26 08:43 | Discharge Summary ---
Date of Service March 24, 2020 Admission HPI Per Admitting Provider History obtained from patient, family, and records. Medical history significant for hypertension, hyperlipidemia, DM 2 on oral meds, prostate cancer status post surgery, ANTONI status post surgery on BIPAP, chronic anemia (baseline hemoglobin of 13 ), past tobacco abuse. Last confinement 2009 for E. coli UTI. Patient was mowing his lawn this afternoon when he experienced chest pressure/tightness associated with shortness of breath. No cough symptoms. No radiation. No prior episodes in the past. Yardwork a little more strenuous than usual since intermediate as per . At the ER, chest discomfort improved with Nitropaste administration. MEDICAL HISTORY: As above. SURGERIES: UP3, skin cancer surgery, prostatectomy, carpal tunnel surgery, FAMILY HISTORY: gastric cancer, DM. ANTONI PERSONAL AND SOCIAL HISTORY: Past tobacco use. No chronic intake of alcoholic beverages. 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 Admission Exam Per Admitting Provider GENERAL: Comfortable, pleasant, obese, slightly anxious, no respiratory distress SKIN: Normal color, warm HEENT: Bespectacled, [place] palpebral conjunctivae, no ptosis, dry buccal mucosa NECK : Supple, short neck, no tenderness CHEST : CTA, no tenderness HEART : Diminished S1-S2 , no obvious murmurs ABDOMEN: Some distention, nontender EXTREMITIES : No LE swelling/tenderness, no other conspicuous deformities noted NEUROLOGIC : Coherent, no facial asymmetry, no other gross focality Principal Diagnosis NSTEMI (non-ST elevated myocardial infarction): Dyslipidemia DM type 2 Hypertension Discharge Exam General- No acute distress Head- atraumatic Eyes- PERRL, EOMI, ENT- oropharynx clear Neck- supple, no JVD Lungs- clear to auscultation Heart- regular rhythm; no murmur Abdomen- normal bowel sounds, soft, nontender Extremities- no calf tenderness, no hematoma in right wrist Neuro- alert, oriented x 3; PERRL, EOMI; no facial palsy; no dysarthria Skin- warm & dry Discharge Data Allergies Allergy/AdvReac Type Severity Reaction Status Date / Time No Known Allergies Allergy Mild Verified 03/23/20 22:58 Consultations 03/23/20 23:11 ED Decision to Admit Stat 03/24/20 00:43 Consult Cardiology Routine 03/24/20 12:13 Burn CD for patient Stat Procedures Performed Operation Date: 03/24/20 10:10 Actual Procedures p Cath, Coronaries ONLY (no LV) - Shiraz Guerrero MD s Cineradiography w/Routine Exam - Shiraz Guerrero MD Ordered Studies 03/24/20 10:08 CL Cath Imgs for PACS use only Stat XR chest 1V portable CLINICAL HISTORY: Chest pain. COMPARISON STUDY: Chest radiograph August 04, 2014. FINDINGS: Lung volumes are normal. Lungs are clear. There is no pneumothorax or pleural effusion. Cardiac size is normal. Mediastinal contours are normal. There is no evidence for pulmonary edema. IMPRESSION: No acute cardiopulmonary findings. ACT 112: Negative or not required by law. Electronically signed by: Ruperto Franks M.D. 03/24/2020 8:32 AM Dictated: 03/24/20830 Transcribed: 03/24/20830 Hospital Course (1) NSTEMI (non-ST elevated myocardial infarction): Present on admission with non radiating pressure like chest pain Troponin on admission 22, that increased to 76 EKG done this morning showed acute changes compare to the EKG on admission IV heparin starting in the ER Case discussed with cardiology and bedside echo done Echo showed mildly reduced LV systolic function with moderate hypokinesis of the inferior/inferior lateral wall. Ejection fraction 45 to 50% heart alert was called for emergent cardiac cath S/P cardiac cath performed by Dr Guerrero showed: LAD: large and transapical. Proximal diffuse up to 40-50% before D1.Mid 95%. Distal vessel with diffuse mild disease and early long eccentric 95-99%. D1 and D2 medium mild. LCx: large and codominant. Ostial 99% hazy lesion. Travels in AV groove and provides multiple small to medium OMs which have mild disease. Terminates distally as a large PLB and large PDA. CELY III. RCA: large caliber and codominant. Diffuse mild disease with up to 30% mid stenosis. Bifurcates distally into large PDA and large branching PLB. PLB has ostial 50-70% stenos Recommended CABG at a tertiary facility cardiology Dr. Farrar discussed case with cardiology in [place] Dr. Sarah who accepted the patient Simvastatin changed to atorvastatin 80mg daily Continue IV heparin drip, aspirin and metoprolol Nitro topical added Pt will be transferred to [facility] continue case monitor Dyslipidemia Cholesterol 122, HDL 55, LDL 59 Simvastatin discontinued and started on Lipitor 80mg DM type 2 Most recent Hba1c 5.9 on Sempteber 2019 Continue to hold metformin due to contrast On lantus and novolod sliding scale while HTN BP stable Continue Lisinopril DVT prophylaxis on IV heparin drip Code Status Full code Disposition Transfer to [facility] for CABG Accepting physician Dr. Sarah Patient's requesting updates for providers. Ms. Bridgett Chairez, contact #[phone]. Total Time Total Time Spent Total Time Spent (In Minutes): 40 minutes Total Time Includes: Examination of the Patient, Discharge Planning, Medication Reconciliation, Communication With Other Providers and Other Discharge Plan Discharge Items Patient Disposition: Transfer Acute Care Hospital Reason For Visit: ACS Discharge Diagnosis: NSTEMI (non-ST elevated myocardial infarction): Dyslipidemia DM type 2 Hypertension Condition on Discharge: Good Activity: As commented below Non-emergency contact: Primary Care Provider and Chief Mate Call non-emergency contact if: you have any medication questions and your symptoms worsen Follow-up/Referrals: Vladimir Acosta MD [Primary Care Provider] - Diet: Carb Consistent or DM2 and Heart Healthy Addtl Attending Provider Instructions: Transfer to [facility] for CABG Accepting physician Dr. Sarah Continue IV heparin drip and gentle IVF (post cardiac cath) and Nitropaste en route to [facility] Simvastatin discontinued and starting on Lipitor 80mg daily Pending Studies at Discharge: No Stand-Alone Forms: My [facility] Skilled Items Patient informed of condition?: Yes DNR: No Discharge Level of Care: Other Communicable Disease: No Discharge Prognosis: Stable Lines: Peripheral IV Urinary Catheter: No Medications and DC Order Prescriptions: New atorvastatin 40 mg Tablet 80 mg PO QAM Qty: 30 RF: 0 Continued metformin 500 mg tablet 500 mg PO BID RF: 0 lisinopril 20 mg tablet 20 mg PO DAILY RF: 0 omeprazole 20 mg capsule,delayed release(DR/EC) 20 mg PO DAILY RF: 0 aspirin 81 mg tablet,chewable 81 mg PO DAILY RF: 0 ergocalciferol (vitamin D2) 1,250 mcg (50,000 unit) capsule 50,000 unit PO WK RF: 0 Discontinued simvastatin 20 mg tablet 20 mg PO HS RF: 0 Discharge Orders: Discharge Order (Routine); Ordered 03/24/20 Ordered By: Francisco Larry Admission Data Admit Date/Time: 03/23/20 23:45 Attending Provider: Francisco Larry Admit Provider: Jasen De La Paz Primary Care Provider: Vladimir Acosta Other Providers: Jasen De La Paz ; Jackson Farrar Other Interventions: Discharge Summary Assessment (RN) Last Done: 03/24/20 13:40
== END 2020-03-24 14:23 | disposition short-term general hospital (02) | DRG 282 ==
LOC: ED 21:51 → 2S 23:45
PROC: CLB.CCO (2020-03-24 10:10)
DX: G47.33 Obstructive sleep apnea (adult) (pediatric); Z51.81 Encounter for therapeutic drug level monitoring; Z87.891 Personal history of nicotine dependence; I21.4 Non-ST elevation (NSTEMI) myocardial infarction; Z79.899 Other long term (current) drug therapy; E11.9 Type 2 diabetes mellitus without complications; I10 Essential (primary) hypertension; Z82.0 Family history of epilepsy and other diseases of the nervous system; Z83.3 Family history of diabetes mellitus; Z79.84 Long term (current) use of oral hypoglycemic drugs; E78.5 Hyperlipidemia, unspecified; Z79.82 Long term (current) use of aspirin